=== PATIENT | female | born 1985 ===

== ENCOUNTER → 2023-11-29 17:31 | Outpatient (REF) | payer BC, SELFPAY | LOC: RAD 17:31 | PROVIDERS: ATTENDING PHYSICIAN Obstetrics & Gynecology; FAMILY PHYSICIAN Family Medicine | DX: N93.0 Postcoital and contact bleeding (principal) | CPT/HCPCS: 76830; 76856 ==

== ENCOUNTER 2024-04-17 10:24 | Outpatient (RCR) | payer BC, SELFPAY | END 2024-04-17 23:59 | disposition home or self-care (01) | LOC: RPT 10:24 | PROVIDERS: ATTENDING PHYSICIAN Obstetrics & Gynecology; FAMILY PHYSICIAN Nurse Practitioner Primary Care | DX: N81.6 Rectocele (principal); N81.11 Cystocele, midline; M62.89 Other specified disorders of muscle; Z73.6 Limitation of activities due to disability | CPT/HCPCS: 97163; 97530 ==

== ENCOUNTER 2024-04-23 09:58 | Outpatient (RCR) | payer BC, SELFPAY | END 2024-04-23 23:59 | disposition home or self-care (01) | LOC: RPT 09:58 | PROVIDERS: ATTENDING PHYSICIAN Obstetrics & Gynecology; FAMILY PHYSICIAN Nurse Practitioner Primary Care | DX: N81.6 Rectocele (principal); N81.11 Cystocele, midline; M62.89 Other specified disorders of muscle; Z73.6 Limitation of activities due to disability | CPT/HCPCS: 97110; 97530 ==

== ENCOUNTER 2024-06-05 18:03 | Outpatient (RCR) | payer BC, SELFPAY | END 2024-06-05 23:59 | disposition home or self-care (01) | LOC: RPT 18:03 | PROVIDERS: ATTENDING PHYSICIAN Obstetrics & Gynecology; FAMILY PHYSICIAN Nurse Practitioner Primary Care | DX: N81.6 Rectocele (principal); N81.11 Cystocele, midline; M62.89 Other specified disorders of muscle; Z73.6 Limitation of activities due to disability | CPT/HCPCS: 97014; 97112; 97140; 97530 ==

== ENCOUNTER 2024-07-10 18:00 | Outpatient (RCR) | payer BC, SELFPAY | END 2024-07-10 23:59 | disposition home or self-care (01) | LOC: RPT 18:00 | PROVIDERS: ATTENDING PHYSICIAN Obstetrics & Gynecology; FAMILY PHYSICIAN Nurse Practitioner Primary Care | DX: N81.6 Rectocele (principal); N81.11 Cystocele, midline; M62.89 Other specified disorders of muscle; Z73.6 Limitation of activities due to disability | CPT/HCPCS: 97112; 97140; 97530 ==

== ENCOUNTER 2024-08-15 13:01 | Outpatient (RCR) | payer BC, SELFPAY | END 2024-08-16 10:10 | disposition home or self-care (01) | LOC: RPT 13:01 | PROVIDERS: ATTENDING PHYSICIAN Obstetrics & Gynecology; FAMILY PHYSICIAN Nurse Practitioner Primary Care | DX: N81.6 Rectocele (principal); N81.11 Cystocele, midline; M62.89 Other specified disorders of muscle; Z73.6 Limitation of activities due to disability | CPT/HCPCS: 97110; 97530 ==